=== PATIENT | female | born 1950 | race Caucasian/White ===

== ENCOUNTER 2017-10-19 20:45 | Emergency (ER) | payer MEDICARE, SELFPAY ==
[2017-10-19 21:03] VITALS: BP 148/63; PULSE 59; RESP 15; TEMP 36.6; O2SAT 98; BMI 23.1
[2017-10-19 21:16] VITALS: BP 148/63; PULSE 59; RESP 15; TEMP 36.6; O2SAT 98; BMI 23.1
--- NOTE | 2017-10-19 22:05 | DI.US.S_ITS ---
PROCEDURE: US PERIPH VENOUS LOW EXTREM BI INDICATIONS: EDEMA POST RECENT FALL, TRAUMA TO SHINS TECHNIQUE: Real-time imaging, as well as color and pulse Doppler interrogation, were performed of the deep veins of both legs from the inguinal ligament to the popliteal fossa. COMPARISON: None. FINDINGS: The deep veins are normally compressible, and free of intraluminal thrombus. Color and pulse Doppler demonstrate normal phasic intravascular flow. There is normal augmentation response to distal compression maneuver. 5.8 x 0.8 x 3.1 cm complex fluid collection in the right anterior/solorzano compatible with posttraumatic hematoma IMPRESSION: No evidence of deep vein thrombosis involving either the right or left lower extremities. Dictated by: Madeline Bustillo MD, PhD on 10/20/2017 at 8:29 Approved by: Madeline Bustillo MD, PhD on 10/20/2017 at 8:30
[2017-10-19 22:18] VITALS: BP 150/55; PULSE 65; RESP 16; O2SAT 97
--- NOTE | 2017-10-19 22:42 | ED_ITS ---
HPI - Extremity Injury (Lower) General Chief Complaint: Extremity Injury, Lower Stated Complaint: BRUISES, CONTUSIONS S/P FALL A WEEK AGO Time Seen by Provider: 10/19/17 21:26 Source: patient and family Mode of arrival: ambulatory Limitations: no limitations History of Present Illness HPI Narrative: 66-year-old otherwise healthy female presents to the emergency department with her for evaluation of bilateral anterior solorzano swelling and ecchymosis ever since the fall last week. She was seen and evaluated at the urgent care down by her home and had multiple x-rays of lower extremities, ankles feet as well as left-sided ribs all without any significant findings. She has been elevating her legs and wearing compression stockings. She denies any new symptoms but is concerned that she still has swelling and bruising 1 week later and she is getting ready to travel in 1 to be sure it was safe. She denies chest pain or shortness of breath. She denies any numbness, tingling or weakness of her lower extremities or other findings consistent with compartment syndrome. She denies fever or chills MD complaint: leg injury Onset (ago): week(s) Type of Injury: blunt Place: street/outdoors Severity: moderate Relieving factors: nothing Exacerbating factors: nothing Context: fall and direct blow Review of Systems Review of Systems All systems reviewed & are unremarkable except as noted in HPI and below Constitutional Denies chills, Denies fever(s), Denies lethargy and Denies weakness Eyes Denies change in vision, Denies eye discharge, Denies irritation and Denies loss of vision ENT Ears, Nose, Mouth, and Throat: Denies change in voice, Denies neck pain and Denies sore throat Cardiovascular Denies chest pain, Denies irregular heart rhythm, Denies lightheadedness, Denies palpitations, Denies dyspnea, Denies dyspnea on exertion and Denies orthopnea Respiratory Denies cough, Denies dyspnea, Denies dyspnea on exertion and Denies wheezing Gastrointestinal Gastrointestinal: Denies abdominal pain, Denies change in bowel habits, Denies diarrhea, Denies nausea and Denies vomiting Genitourinary Denies hematuria, Denies flank pain, Denies urinary incontinence and Denies urinary urgency Musculoskeletal Denies neck pain Integumentary/Breasts Denies pruritus, Denies erythema, Denies rash, Reports skin swelling, Reports unusual bruising and Denies wounds Neurologic Denies confusion, Denies loss of vision and Denies weakness Psychiatric Denies anxiety, Denies confusion, Denies depression, Denies homicidal ideation and Denies suicidal ideation Endocrine Denies palpitations Hematologic/Lymphatic Denies easy bruising Allergic/Immunologic Denies wheezing [facility] Social History Smoking Status: Never smoker Exam Narrative Exam Narrative: Pleasant 66-year-old female in no acute distress. GCS 15 Initial Vital Signs Initial Vital Signs: Vital Signs Temperature 97.9 F 10/19/17 21:03 Pulse Rate 59 L 10/19/17 21:03 Respiratory Rate 15 10/19/17 21:03 Blood Pressure 148/63 H 10/19/17 21:03 Pulse Oximetry 98 10/19/17 21:03 Const General: cooperative and well developed Nutritional Appearance: well nourished Orientation: alert, awake, oriented x3 and not confused HENMT Head: normocephalic and atraumatic Ears: external ears normal and TM's normal bilaterally Nose: external nose normal and No nasal discharge Face and sinus: sinuses nontender, face symmetric, no sinus tenderness and No dry mucous membranes Mouth: oral mucosae normal and moist mucous membranes Teeth and gingiva: dentition normal Throat: tonsils normal and uvula midline Eyes General: appearance normal, both eyes and all related structures Eyelids: eyelids normal Conjunctivae: conjunctivae normal Sclera: sclerae normal Pupils: PERRL EOM: EOM intact bilaterally Chest Chest: normal inspection of the chest Resp Effort & Inspection: normal respiratory effort, able to speak in complete sentences, no respiratory distress and no use of accessory muscles Auscultation: clear to auscultation bilaterally, no rales, no rhonchi and no wheezes Cardio Rate: regular rate Rhythm: regular rhythm Heart Sounds: no click, no gallops, no murmurs and no rubs Pulses: normal peripheral pulses GI Inspection: non-distended Palpation: soft, no hepatosplenomegaly, No guarding, No pulsatile mass and No tender Auscultation: normal bowel sounds Back/Spine/Pelvis Back: No CVA tenderness Cervical Spine: cervical ROM normal and No pain with cervical ROM Thoracic/Lumbar Spine: thoracic and lumbar spine normal to inspection Skin Trauma: other (Impressive yellowish, dark purple, brownish bruising to anterior shins down to just proximal to ankles. There are healing abrasions on right anterior solorzano) Neuro General: alert, awake and oriented x3 Cognition: normal cognition Speech: speech normal Gait: normal gait Motor: muscle tone normal throughout Sensory Exam: no sensory deficits noted Extrem Right lower extremity: lower leg Details: tenderness, localized swelling and ecchymosis Left lower extremity: lower leg (Cap refill normal, soft compartments) Psych Appearance: well kempt Mental Status: mental status grossly normal Attitude: cooperative Thought Content: normal and suicidality Judgment: judgment good Course Orders Ordered: ED Orders 10/19/17 22:05 US periph venous low extrem bi Stat Vital Signs - 8 hr 10/19/17 21:03 10/19/17 21:16 10/19/17 22:18 Temperature 97.9 F 97.9 F Pulse Rate 59 L 59 L 65 Respiratory Rate 15 15 16 Blood Pressure 148/63 H 148/63 H Blood Pressure [Left Arm] 150/55 H Pulse Oximetry 98 98 97 MDM - Extremity Injury (Lower) Differential Diagnosis Likely other (DVT, hematoma, active bleeding) Imaging Data Venous US: Radiologist's impression: Hematoma, no DVT Discharge Plan Departure Patient Disposition: Home, Self-Care Clinical Impression: Contusion of leg, multiple sites, Contusion of leg, right, multiple sites Discharge Date/Time: 10/19/17 23:01 Interventions: ED Discharge Assessment Last Done: 10/19/17 23:05 Instructions: Contusion, Acute Compartment Syndrome Activity Restrictions/Additional Instructions: *You have been diagnosed with [ bilateral lower extremity contusions with hematoma ] *What to do: * continue to elevate your legs when you are not being active. Compression stockings may help. *Follow up with your primary care provider in 2-3 days *Return to ER if you should have any new, worsening or concerning symptoms such as increased swelling, pain or the addition of numbness, tingling or weakness
--- NOTE | 2017-10-19 22:49 | PC.NURSE ---
Pt states concerned about LE bi lat blood clots from injury onset 10/11 from falling in [place]. States was seen on 10/13 in [place] and xrays were taken but is concerned about increasing swelling bilat states 07/01 pain. Both legs are bruised from knee down solorzano with swelling. Pt ambulated to room with steady gait.
== END 2017-10-19 23:01 | disposition home or self-care (01) ==
PROVIDERS: Emergency Provider Emergency Medicine
DX: S80.11XA Contusion of right lower leg, initial encounter (principal); S80.12XA Contusion of left lower leg, initial encounter; W01.0XXA Fall on same level from slipping, tripping and stumbling without subsequent striking against object, initial encounter
CPT/HCPCS: 93970; 99282; 99284